=== PATIENT | female | born 1995 | race Caucasian/White ===

== ENCOUNTER 2016-03-06 16:07 | Emergency (ER) | payer OTHER ==
[2016-03-06] MEDS ORDERED: KETOROLAC 30 MG/ML VIAL ONE (18:48)
[2016-03-06] MEDS ORDERED: SODIUM CHLORIDE 0.9% 1,000 ML ONE (18:49)
== END 2016-03-06 19:55 | disposition home or self-care (01) ==
LOC: ER 16:07
CPT/HCPCS: 36415; 80053; 81003; 83690; 84703; 85025; 93005; 96361; 96374